=== PATIENT | female | born 1935 ===

== ENCOUNTER 2018-04-02 15:02 | Inpatient (IN) | payer OTHER ==
[~2018-04-02] VITALS: Ht 152.4 cm; Wt 69.4 kg
[2018-04-03] MEDS ORDERED: SIMVASTATIN40 MG PO (09:44)
[2018-04-03] MEDS ORDERED: ATACAND4 MG PO (09:44)
[2018-04-03] MEDS ORDERED: GLUMETZA500 MG PO (09:45)
[2018-04-03] MEDS ORDERED: ALENDRONATE SOD70 MG PO (09:45)
[2018-04-03] MEDS ORDERED: EVISTA60 MG PO (09:45)
[2018-04-03] MEDS ORDERED: [UNRECOGNIZED DRUG - OTHER] PO (09:46)
[2018-04-11] MEDS ORDERED: HYOSCYAMINE0.125 M1 SL (08:12)
[2018-04-11] MEDS ORDERED: PANTOPRAZOLE SO40 MG PO (08:13)
[2018-04-11] MEDS ORDERED: TRAM1TAB98 PO (08:13)
[2018-04-11] MEDS ORDERED: KETO10TA2 PO (08:14)
== END 2018-04-11 11:41 | disposition home or self-care (01) | DRG 330 ==
LOC: O/R 04-07 06:06 → SURH 04-07 06:06 → CIR.AMB 04-07 14:42 → EDSTATUS 04-07 14:44 → SURH 04-07 15:01
PROVIDERS: ADMIT Surgery
PROC: 07TC4ZZ Resection of Pelvis Lymphatic, Percutaneous Endoscopic Approach (ICD-10-PCS; 2018-04-07)
PROC: 0WQF4ZZ Repair Abdominal Wall, Percutaneous Endoscopic Approach (ICD-10-PCS; 2018-04-07)
PROC: 0T9B70Z Drainage of Bladder with Drainage Device, Via Natural or Artificial Opening (ICD-10-PCS; 2018-04-07)
PROC: 0DTL4ZZ Resection of Transverse Colon, Percutaneous Endoscopic Approach (ICD-10-PCS; principal; 2018-04-07 13:15)
PROC: 30233N1 Transfusion of Nonautologous Red Blood Cells into Peripheral Vein, Percutaneous Approach (ICD-10-PCS; 2018-04-09)
DX: C18.4 Malignant neoplasm of transverse colon (principal); D62 Acute posthemorrhagic anemia; K43.2 Incisional hernia without obstruction or gangrene; R19.4 Change in bowel habit; R97.0 Elevated carcinoembryonic antigen [CEA]; I11.9 Hypertensive heart disease without heart failure; E11.9 Type 2 diabetes mellitus without complications; Z79.4 Long term (current) use of insulin